=== PATIENT | female | born 1975 | race Hispanic/Latino ===

== ENCOUNTER → 2025-05-17 | Outpatient (REF) | payer OTHER | LOC: MAMMO 09:24 | PROVIDERS: ATTEND Family Medicine | DX: Z12.31 Encounter for screening mammogram for malignant neoplasm of breast (principal) | CPT/HCPCS: 77067 ==

== ENCOUNTER → 2025-05-31 | Outpatient (REF) | payer OTHER | LOC: MAMMO 11:59 | PROVIDERS: ATTEND Family Medicine | DX: Q83.9 Congenital malformation of breast, unspecified (principal); N64.89 Other specified disorders of breast ==